=== PATIENT | female | born 2005 | race Caucasian/White ===

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

== ENCOUNTER 2025-03-27 07:37 | Inpatient (IN) ==
[2025-03-27] MEDS ORDERED: LIDOCAINE 1% LOCAL 20 ML VIAL INFIL PRN (08:11)
[2025-03-27] MEDS ORDERED: CALCIUM CARBONATE 500 MG CHEWABLE TAB PO PRN (08:22)
[2025-03-27] MEDS ORDERED: ACETAMINOPHEN 500 MG TAB PO PRN (08:22)
--- NOTE | 2025-03-27 08:29 | History & Physical Report ---
Date of Service March 27, 2025 Assessment & Plan (1) Encounter for induction of labor: Plan: Pt is a 19yo at 40w 2d with no significant antepartum hx presenting for induction of labor Routine labs ordered Pitocin ordered Epidural placement on demand Monitor tracing Expectant management for labor, anticipate Admission and Anticipated Discharge Date Admission Date: March 27, 2025 History of Present Illness Primary Care Provider: YONG Dumont Pt is a 19yo female currently at 40w 2d with an NITA 03/25/25 who is here for elective induction of labor. Adequate movement; feeling contractions intermittently, no fluid loss; no bloody show Had regular appointments with OB. Labs: Blood Type A Positive 08/27/24 Antibody Screen NEGATIVE 08/27/24 Hgb 12.6 g/dl (12.0-16.0) 01/01/25 Hct 36.3 % (37.0-47.0) L 01/01/25 MCV 84.0 fL (80.0-100.0) 08/27/24 Plt Count 213 K/uL (130-400) 08/27/24 Rubella IgG Antibody Immune (Immune) 08/27/24 Treponema pallidum Ab Negative (Negative) 01/01/25 Hep Bs Antigen Negative (Negative) 08/27/24 Hepatitis C Antibody Negative (Negative) 08/27/24 HIV 1&2 Ab/P24 Ag 4thGn Negative (Negative) 08/27/24 Glucose 1 Hr 50 gm 149 mg/dl (70-130) H 01/01/25 Chlamydia trachomatis RNA Not Detected (NotDetected) 08/27/24 Neisseria gonorrhoeae RNA Not Detected (NotDetected) 08/27/24 Thyroid Stimulating Hormone (TSH) 2.095 uIu/ml (0.300-4.500) 02/25/25 GBS: Negative Low risk panorama Review of Systems : Denies fever, chills, headache, vision changes, shortness of breath, difficulty breathing, chest pain, palpitations, RUQ/epigastric pain, dysuria Allergies Allergy/AdvReac Type Severity Reaction Status Date / Time No Known Allergies Allergy Verified 03/26/25 13:19 Home Medications Medication Instructions Recorded Confirmed Type PNV [id number] 1 tab PO DAILY 08/20/24 03/27/25 History [ Gummies] levothyroxine 50 mcg tablet 50 mcg PO DAILY #30 tabs 03/11/25 03/27/25 Rx Patient History Medical History (Updated 03/27/25 @ 08:32 by Serafin Denney MD) History of PCOS Varicella vaccination History of blood transfusion Obesity (BMI 35.0-39.9 without comorbidity) Dietary counseling and surveillance Obesity Anemia Acne Depression Anxiety Surgical History S/P tonsillectomy and adenoidectomy S/P ligament repair hand Family History Mother Alcoholism Anxiety Depression Drug abuse Father Anxiety Diabetes Heart disease Hypertension Grandmother Breast cancer Other No pertinent family history in first degree relatives Denies family history of Ovarian cancer Prostate cancer Myocardial infarction Colorectal cancer Social History Smoking Status: Never smoker Tobacco Type: E-cigarettes / Vaping Second Hand Exposure: No; Do You Dip or Chew Tobacco: No; Hx Alcohol Use: No Hx Substance Use: No Preferred Language: Canadian Communication Ability: Effective Laser/Electro Optics Technician Required: No Beliefs That Will Affect Care: None marital status: marital status details: Dennis Molina [phone] Current Living Situation: Spouse Current Living Situation Comment: At home with and 2 y/o son current occupational status: unemployed How many Children do You have: 1 Other Information That Helps Us Care for You: No Feels Safe at Home: Yes Safety Concerns: Feels Safe At This Time Childhood Exposure to Second-Hand Smoke: Yes Diet: regular caffeine: No Dental Care, Regularly: Yes Physical Activity Frequency: Does not Exercise Seatbelt Use: always Sunscreen Use: Yes Do you think of yourself as: straight/heterosexual Gender Identity: Female Assistive Devices: None Physical Exam Physical Exam: General: patient resting comfortably, NAD, non-toxic in appearance, AAOx4, answers questions appropriately. Skin: warm, dry, intact HEENT: NC/AT, anicteric sclera, conjunctiva without injection Heart: S1/S2 heard, regular, no m/r/g Lungs: equal air entry bilaterally, no rales/rhonchi/wheezes Abd: soft, NT/ND, gravid uterus Ext: warm, no clubbing/cyanosis or edema Neuro: nonfocal, speech intact, no facial droop, moving all extremities on command : FHR baseline 140, moderate variability, accelerations present, decelerations absent, contractions q4-5minutes. Category 1 tracing. Results & Data Vital Signs (Past 12 Hours) Vital Signs Temp Pulse Resp BP 03/27/25 07:50 36.9 C 18 03/27/25 07:46 102 H 122/73 Supervising Physician Co-Signing Physician Notes Resident Physician Supervision Note: I interviewed and examined the patient. Discussed with Dr. Morales and agree with findings and plan as documented in the note. Any exceptions or clarifications are listed here: Patient is a 19yowf with iup at 40 2/7 who presents for postdates iol. essentially uncomplicated. cx favorable. Plan pitocin iol, arom when appropriate and epidural on demand. fetus category one. Anticipate . Documented By: Estefania Patiño MD, FACOG Resident Activity Tracking Resident Involvement: Resident Care Provided Care Provided: OB Delivery
[2025-03-27 08:53] LABS: Hematocrit (blood only) 40.1 % (37.0-47.0); Hemoglobin 14.0 g/dL (12.0-16.0); Mean Corpuscular Hemoglobin 29.9 pg (25.0-34.0); Mean Corpuscular Volume 85.5 fL (80.0-100.0); Platelet Count 202 K/uL (130-400); RDW Standard Deviation 46.2 fL (36.4-46.3); Red Blood Count 4.69 M/uL (4.20-5.40); White Blood Count 9.97 K/ul (4.8-10.8)
[2025-03-27] MEDS: LACTATED RINGER'S 1,000 ML IV PRN (08:56)
[2025-03-27] MEDS: OXYTOCIN 30 UNITS/NSS 30 UNITS/500 ML BAG IV PRN ×2 (08:58→18:34)
--- NOTE | 2025-03-27 13:08 | Labor Progress Brief Note ---
Date of Service March 27, 2025 Subjective comfortable Assessment & Plan (1) Encounter for induction of labor: Plan continue pit, epidural on demand. fetus category one. anticipate . Admission and Anticipated Discharge Date Admission Date: March 27, 2025 Physical Exam Physical Exam: cx--4/80/-2 arom--clear toco--q2-4min, pit at 14 efm--130s with mod variability, accels to 160s, no decels Results & Data Vital Signs (Past 12 Hours) Vital Signs Temp Pulse Resp BP 03/27/25 12:30 16 03/27/25 12:30 16 03/27/25 12:00 18 03/27/25 12:00 18 03/27/25 11:30 18 03/27/25 11:30 18 03/27/25 11:06 90 03/27/25 11:06 112/67 03/27/25 11:00 18 03/27/25 11:00 36.9 C 18 03/27/25 10:30 16 03/27/25 10:30 16 03/27/25 10:00 18 03/27/25 10:00 18 03/27/25 09:30 18 03/27/25 09:30 18 03/27/25 09:00 18 03/27/25 09:00 36.9 C 18 03/27/25 09:00 114 H 03/27/25 09:00 113/64 03/27/25 07:50 36.9 C 18 03/27/25 07:46 36.9 C 102 H 18 122/73 Coding Level of Care Code None Diagnoses Encounter for induction of labor Z34.90
[2025-03-27] MEDS: SODIUM CHLORIDE 0.9% PF INJ 10 ML VIAL EPI STA (15:35)
[2025-03-27] MEDS: fentANYL 2 MCG/ML BUPIVacaine 0.125%-NSS 100ML BAG ONE (15:41)
[2025-03-27] MEDS ORDERED: fentANYL 2 MCG/ML BUPIVacaine 0.125%-NSS 100ML BAG EPI PRN (15:46)
[2025-03-27] MEDS ORDERED: NALOXONE HCL 1 MG in SODIUM CHLORIDE 0.9% 1,000 ML IV PRN (15:46)
[2025-03-27] MEDS ORDERED: BUPIVACAINE 0.25% PF 30 ML VIAL EPI STA (15:46)
[2025-03-27] MEDS ORDERED: ROPIVACAINE 0.5% PF 5 MG/ML 20 ML VIAL EPI PRN (15:46)
[2025-03-27] MEDS ORDERED: NALBUPHINE HCL INJ 10 MG/ML AMP IV PRN (15:46)
[2025-03-27] MEDS ORDERED: BUPIVACAINE 0.25% PF 30 ML VIAL EPI PRN (15:46)
[2025-03-27] MEDS ORDERED: LIDOCAINE 2% MPF LOCAL 5 ML VIAL EPI PRN (15:46)
[2025-03-27] MEDS ORDERED: SODIUM CHLORIDE 0.9% PF INJ 10 ML VIAL EPI PRN (15:46)
[2025-03-27] MEDS ORDERED: NALOXONE HCL 0.4 MG/1 ML VIAL/CARP IV PRN (15:46)
[2025-03-27] MEDS ORDERED: diphenhydrAMINE 50 MG/ML VIAL IV PRN (15:46)
[2025-03-27] MEDS ORDERED: LIDOCAINE 2%/EPINEPHRINE 1:200,000 20 ML PF EPI STA (15:46)
--- NOTE | 2025-03-27 15:49 | Anesthesiology Consultation ---
Date of Service March 27, 2025 Assessment & Plan Chart Review Chart Review: Acceptable Risk for Surgery Consults Requested none ASA ASA2 Proposed Anesthesia Anesthesia Type: Labor Epidural Risk / Benefits Reviewed With: PT / POA / Parent / Guardian, Accepts Plan and Informed Consent Obtained History Height/Weight Height: 5 ft 4 in Weight: 104.78 kg Allergies Allergy/AdvReac Type Severity Reaction Status Date / Time No Known Allergies Allergy Verified 03/26/25 13:19 Medications Home Medications Medication Instructions Recorded Confirmed Last Taken PNV no.[id number] 1 tab PO DAILY 08/20/24 03/27/25 03/26/25 [ Gummies] levothyroxine 50 mcg tablet 50 mcg PO DAILY #30 tabs 03/11/25 03/27/25 03/26/25 Active Medications Generic Name Dose Route Start Last Admin Trade Name Freq PRN Reason Stop Dose Admin Oxytocin 30 units in 500 mls @ 16 mls/hr 03/27/25 08:11 03/27/25 13:10 Pitocin 30 Units/Nss IV 03/29/25 08:10 0.96 units/hr .Q24H PRN 16 mls/hr Labor Induction/Augmentation Titration Protocol 0.96 UNITS/HR Lactated Ringer's 1,000 mls @ 125 mls/hr 03/27/25 08:11 03/27/25 14:00 Lr IV 03/29/25 08:10 999 mls/hr .Q8H PRN Administration L&D Protocol Protocol Past Medical History Medical History (Updated 03/27/25 @ 08:32 by Serafin Denney MD) History of PCOS Varicella vaccination History of blood transfusion Obesity (BMI 35.0-39.9 without comorbidity) Dietary counseling and surveillance Obesity Anemia Acne Depression Anxiety Past Family History Family History Mother Alcoholism Anxiety Depression Drug abuse Father Anxiety Diabetes Heart disease Hypertension Grandmother Breast cancer Other No pertinent family history in first degree relatives Denies family history of Ovarian cancer Prostate cancer Myocardial infarction Colorectal cancer Past Surgical History Surgical History S/P tonsillectomy and adenoidectomy S/P ligament repair hand Social History Smoking Status: Never smoker tobacco type: e-cigarettes Do You Dip or Chew Tobacco: No Hx Alcohol Use: No Hx Substance Use: No substance use type: does not use Physical Exam Vital Signs Last Vital Signs Temp 36.6 C 03/27/25 13:00 Pulse 102 H 03/27/25 15:47 Resp 18 03/27/25 13:00 BP 110/64 03/27/25 15:47 Pulse Ox 98 03/27/25 15:45 Constitutional + acute distress ENMT Thyromental Distance: > or= 3.5 Finger Breadths Mallampati Class: III Neck normal visual inspection Respiratory normal respiratory effort Auscultation: lungs clear to auscultation bilaterally Cardiovascular Rate/Rhythm: regular rate and regular rhythm Musculoskeletal Extremities: extremities normal to inspection Neurologic moves all extremities Motor/Sensory: no sensory deficit Psychiatric Orientation: alert and oriented x 3 Testing Laboratory Results 03/27/25 08:35 Blood Type A Positive 03/27/25 08:35 Antibody Screen NEGATIVE 03/27/25 08:35
[2025-03-27] MEDS: BUPIVACAINE 0.25% PF 30 ML VIAL ONE (16:08)
[2025-03-27] MEDS: LIDOCAINE 2%/EPINEPHRINE 1:200,000 20 ML PF ONE (16:08)
[2025-03-27] MEDS: SODIUM CHLORIDE 0.9% PF INJ 10 ML VIAL ONE ×2 (16:09→19:31)
[2025-03-27] MEDS: METHYLERGONOVINE MALEATE 0.2 MG/ML AMP ONE (18:05)
--- NOTE | 2025-03-27 18:26 | Delivery Summary ---
Vaginal Delivery Summary Date of Service March 27, 2025 Vaginal Delivery Summary and 1st Degree LAC Pre-operative Diagnosis: at 40 2/7 iol Post-operative Diagnosis: same Procedure: pitocin iol arom epidural first degree laceration and repair EBL: 400cc (estimated) Anesthesia: epidural Procedure: The patient presented to labor and delivery for postdates induction. Pitocin started, arom, then epidural. The patient progressed to c/c/+2. The patient pushed for 55minutes to deliver a viable male infant in DOP position, restituting to LOP. The anterior shoulder was immediately delivered with ease and the rest of the was then delivered without difficulty. The baby was vigorous. The nose and mouth were bulb suctioned and the was placed in the maternal abdomen for drying and attention. Cord was clamped and cut at one minute of life. Cord blood and segment obtained. Placenta delivered spontaneous, intact with a three vessel cord. Cervix/sulci/rectum were intact. A first degree perineal laceration was repaired in the normal standard fashion. Hemostasis obtained with dilute pitocin and fundal massage. Apgars were 8/9. Mother and baby doing well at the end of the delivery[place] [facility] [place] Delivery Type Details: and 1st Degree LAC
--- NOTE | 2025-03-27 18:46 | Anesthesia Procedure Note ---
Date of Service March 27, 2025 Anesthesia Post Epidural Note Vital Signs Vital Signs: Temp Pulse Resp BP Pulse Ox 36.9 C 85 22 115/57 L 100 03/27/25 14:55 03/27/25 18:43 03/27/25 14:55 03/27/25 18:43 03/27/25 17:57 Notes Mental Status: alert / awake / arousable and participated in evaluation Nausea / Vomiting: adequately controlled Pain: adequately controlled Airway Patency, RR, SpO2: stable & adequate BP & HR: stable & adequate Hydration State: stable & adequate Neuraxial Anesthesia: was administered and sensory block is resolving Anesthetic Complications: no major complications apparent Epidural: Removed without complications and With tip intact
[2025-03-27] MEDS ORDERED: ACETAMINOPHEN 325 MG TAB PO PRN (19:16)
[2025-03-27] MEDS ORDERED: OXYTOCIN 30 UNITS/NSS 30 UNITS/500 ML BAG IV PRN (19:16)
[2025-03-27] MEDS ORDERED: DIPHTHER/TETAN/PERTUS Vaccine (Tdap, Adol/Adult) 0.5mL IM ONE (19:16)
[2025-03-27] MEDS ORDERED: HYDROCORTISONE ACETATE 25 MG SUPP PR PRN (19:16)
[2025-03-27] MEDS: METHYLERGONOVINE MALEATE 0.2 MG/ML AMP IM ONE (20:10)
[2025-03-27] MEDS: DOCUSATE SODIUM 100 MG CAP PO SCH (20:50)
[2025-03-27] MEDS: BENZOCAINE 20% SPRY 85 APPLN/85 GM CAN EXT PRN (20:50)
[2025-03-28] MEDS: IBUPROFEN 600 MG TAB PO PRN (00:15)
[2025-03-28 01:04] VITALS: RESP 20; O2SAT 96
[2025-03-28] MEDS: LEVOTHYROXINE SODIUM 50 MCG TABLET PO SCH (06:29)
--- NOTE | 2025-03-28 07:53 | Obstetrical Progress Note ---
Date of Service March 28, 2025 Assessment & Plan (1) Encounter for assessment: Plan Doing well. Routine care. Might desire d/c later today. Day #:: 1 Subjective Ambulation: ambulating normally Voiding: no voiding problems Passing Gas:: Yes Diet Tolerance:: regular diet Lochia:: Small Feeding Type:: breast feeding Physical Exam Constitutional WD/WN, vitals as above Respiratory normal respiratory effort, lungs clear to auscultation Cardiovascular RRR, no murmur, no edema Extremities: + edema (tr); no calf tenderness Gastrointestinal (Abdomen) soft, nt, nd ff/nt at u Psychiatric A+Ox3, euthymic affect Results & Data Vital Signs (Past 12 Hours) Vital Signs Temp Pulse Pulse Resp BP BP Pulse Ox 03/27/25 23:45 36.8 C 94 H 20 107/69 96 03/27/25 21:15 37.4 C 102 H 18 107/69 97 03/27/25 20:25 115 H 03/27/25 20:25 111/55 L 03/27/25 20:10 102 H 03/27/25 20:10 134/79 03/27/25 19:55 93 H 03/27/25 19:55 132/67 O2 Del Method 03/27/25 23:45 Room Air 03/27/25 21:15 Room Air 03/27/25 20:25 03/27/25 20:25 03/27/25 20:10 03/27/25 20:10 03/27/25 19:55 03/27/25 19:55
[2025-03-28 08:07] LABS: Hematocrit (blood only) 37.2 % (37.0-47.0); Hemoglobin 13.3 g/dL (12.0-16.0)
[2025-03-28] MEDS: PRENATAL VITAMIN 1 TAB PO SCH (08:37)
[2025-03-28 14:33] VITALS: BP 115/72; PULSE 80; TEMP 97.7
== END 2025-03-28 19:27 | disposition home or self-care (01) | DRG 807 ==
LOC: 4S1 07:37 → 4E2 21:34